=== PATIENT | male | born 1985 | race African-American/Black ===

== ENCOUNTER 2025-04-16 05:35 | Emergency (ER) | payer OTHER ==
[2025-04-16 05:48] VITALS: TEMP 97.7
--- NOTE | 2025-04-16 06:24 | ED ---
Fall HPI - General Chief Complaint: Fall Stated Complaint: Fall Time Seen by Provider: 04/16/25 05:58 Source: patient, EMS, RN notes reviewed Mode of arrival: EMS Limitations: no limitations - History of Present Illness Initial Comments: This is a 39-year-old male who presents to the emergency department for a fall. Patient is currently at [facility] for opioid abuse. He tripped over his own shoes when he was walking down the hallway, causing him to fall and land face first. Denies any LOC or blood thinner use. He does have a laceration to his right eyebrow, which they bandaged. Unsure when his last tetanus vaccine was. Denies sustaining any other injuries. He is slow to respond and not willing to engage much in conversation. States that this is because he is tired. MD Complaint: fall - Related Data Allergies Allergy/AdvReac Type Severity Reaction Status Date / Time No Known Allergies Allergy Verified 04/16/25 05:47 Review of Systems ROS Statement: Those systems with pertinent positive or pertinent negative responses have been documented in the HPI. ROS Other: All systems not noted in ROS Statement are negative. Past Medical History Additional Past Medical History / Comment(s): opioid abuse History of Any Multi-Drug Resistant Organisms: None Reported Past Surgical History: Joint Replacement Additional Past Surgical History / Comment(s): left hip replacement 2017 Past Psychological History: No Psychological Hx Reported Smoking Status: Current some day smoker Past Alcohol Use History: None Reported Past Drug Use History: Opiates General Exam Limitations: no limitations General appearance: alert, in no apparent distress Head exam: Present: other (1 cm superficial laceration above the right eyebrow) Eye exam: Present: normal appearance, PERRL, EOMI. Absent: scleral icterus, conjunctival injection, periorbital swelling Respiratory exam: Present: normal lung sounds bilaterally. Absent: respiratory distress, wheezes, rales, rhonchi, stridor Cardiovascular Exam: Present: regular rate, normal rhythm GI/Abdominal exam: Present: soft. Absent: distended, tenderness Neurological exam: Present: alert, oriented X3, CN II-XII intact Psychiatric exam: Present: normal affect, normal mood Course Vital Signs 04/16/25 04/16/25 05:36 06:39 Temperature 97.7 F Pulse Rate 59 L 58 L Respiratory 14 16 Rate Blood Pressure 129/87 118/69 O2 Sat by Pulse 99 98 Oximetry Procedures - Laceration Laceration #1 Consent Obtained: verbal consent Indication: laceration Site: face Size (cm): 1 Description: linear Depth: simple, single layer Size of Sutures: other (Dermabond) Medical Decision Making - Medical Decision Making This is a 39-year-old male who presents to the emergency department for a fall. Was pt. sent in by a medical professional or institution? @ -[facility] Did you speak to anyone other than the patient for history? @ -EMS provided the majority of the history Did you review nursing and triage notes? @ -Yes, and I agree, it is accurate with regards to the patient's symptoms. Were old charts reviewed? @ -No Differential Diagnosis? @ -Differential Diagnosis Head Injury: Contusion, hematoma, intracranial hemorrhage, skull fracture, whiplash, concussion, this is not meant to be an all-inclusive list. EKG interpreted by me (3pts min.)? @ -Not obtained X-rays interpreted by me (1pt min.)? @ -Not obtained CT interpreted by me (1pt min.)? @ -Computed tomography scan of the brain and c-spine obtained. My interpretation identifies no evidence of an acute intracranial hemorrhage, skull fracture, or cervical spine fracture. CT scan of the facial bones obtained. My interpretation identifies no acute facial fractures. U/S interpreted by me (1pt. min.)? @ -Not obtained What testing was considered but not performed? (CT, X-rays, U/S, labs)? Why? @ -None What meds were considered but not given? Why? @ -None Did you discuss the management of the patient with other professionals? @ -No Did you reconcile home meds? @ -No Was smoking cessation discussed for >3mins.? @ -I discussed smoking cessation for greater than 3 minutes. The risk of smoking were discussed with the patient including but not limited to risks of cancer, stroke, coronary artery disease and COPD. Also discussed with patient were multiple methods of quitting smoking. Lastly we discussed the financial cost of smoking. Was critical care preformed (if so, how long)? @ -No Were there social determinants of health that impacted care today? How? (Homelessness, low income, unemployed, alcoholism, drug addiction, transportation, low edu. Level, literacy, decrease access to med. care, long term, rehab)? @ -Rehab, where the event took place Was there de-escalation of care discussed even if they declined? (Discuss DNR or withdrawal of care, Hospice)? @ -No What co-morbidities impacted this encounter? (DM, HTN, Smoking, COPD, CAD, Cancer, CVA, Hep., AIDS, mental health diagnosis, sleep apnea, morbid obesity)? @ -History of drug addiction, smoking Was patient admitted / discharged? @ -Discharged. On arrival, patient had a GCS of 13-14 due to minor confusion in conversation as well as only wanting to open eyes to verbal stimuli. However, patient did advise that this was because he was very tired. Because he did not have a GCS of 15 and was not engaging much in conversation, CT scan of the brain/C-spine and CT scan of the facial bones obtained. No acute intracranial process or fractures were identified. Dermabond was used to repair the laceration and his tetanus vaccine was updated. At the time of discharge and on reevaluation, GCS was 15. He remained alert and oriented x 4 throughout his visit. Patient discharged back to [facility] in stable condition. Case discussed with ED attending Dr. Moore. Return precautions reviewed in depth, the patient is instructed to return to the emergency department with any new, worsening, or concerning symptoms. Patient verbalized understanding. Undiagnosed new problem with uncertain prognosis? @ -None Drug Therapy requiring intensive monitoring for toxicity (Heparin, Nitro, Insulin, Cardizem)? @ -None Were any procedures done? @ -Laceration repair with Dermabond Diagnosis/symptom? @ -Fall, head injury, laceration Acute, or Chronic, or Acute on Chronic? @ -Acute Uncomplicated (without systemic symptoms) or Complicated (systemic symptoms)? @ -Uncomplicated Side effects of treatment? @ -None Exacerbation, Progression, or Severe Exacerbation] @ -Not applicable Poses a threat to life or bodily function? @ -No - Radiology Data Radiology results: report reviewed, image reviewed Disposition Clinical Impression: Fall, Head injury, Laceration, Nicotine dependence Disposition: HOME SELF-CARE Instructions (If sedation given, give patient instructions): Skin Adhesive Care (ED) Additional Instructions: Return to the emergency department with any new, worsening, or concerning symptoms. Keep the area dry, do not apply topical medications, and do not rub, scratch, or pick at the wound. The adhesive will naturally fall off within 5-10 days. Follow up with your primary care provider in 1-2 days. Is patient prescribed a controlled substance at d/c from ED?: No Referrals: None,Stated [Primary Care Provider] - 1-2 days Time of Disposition: 07:36
[2025-04-16 06:41] VITALS: BP 118/69; PULSE 58; RESP 16
[2025-04-16] MEDS: TOPICAL SKIN ADHESIVE 1 EACH AMP TOPICAL ONE (06:58)
[2025-04-16] MEDS: DIPH,PERTUS(ACELL)TETVAC-LF 0.5 ML VIAL IM ONE (06:59)
[2025-04-16] MEDS: TRIMETHOBENZAMIDE 100 MG/ML 2 ML VIAL IM STA (07:20)
--- NOTE | 2025-04-16 07:26 | CT ---
EXAMINATION TYPE: CT brain cspine wo con, CT facial bones wo con DATE OF EXAM: 04/16/2025 6:23 AM COMPARISON: None. CLINICAL INDICATION: Male, 39 years old with history of Fall; pain TECHNIQUE: Brain: Multiple axial CT images of the brain were obtained without IV contrast. Cspine: Axial CT images from the skull base to the inferior aspect of T2 we obtained without intraven ous contrast. Coronal and sagittal reformatted images were also reviewed. Facial: Axial imaging of the facial structures with sagittal and coronal reformats. CT DLP: 1077 mGycm, Automated exposure control for dose reduction was used. FINDINGS: Brain: Extra-axial spaces: No abnormal extra-axial fluid collections. Ventricular system: Within normal limits Cerebral parenchyma: No acute intraparenchymal hemorrhage or mass effect. The msith-white junction is well differentiated. Cerebellum: Unremarkable. Mass effect: No evidence of midline shift. Intracranial vasculature: unremarkable Soft tissues: Subcutaneous changes edema around the right periorbital ridge. Calvarium/osseous structures: No depressed skull fracture. Remote left lamina papyracea fracture. Paranasal sinuses and mastoid air cells: Clear. Visualized orbits: Orbital contents are intact. Cervical spine: Fracture: None. Osseous structures: Unremarkable Vertebral alignment: Within normal limits. Spinal canal/Neural Foramina: No evidence of significant spinal canal narrowing. No evidence for sign ificant neural foraminal stenosis. Neck soft tissues: Prevertebral soft tissues are within normal limits. Other: The airway is patent. The lung apices are clear. Facial: There is no evidence of fracture, subluxation, dislocation. There is mild soft tissue swellin g on the right orbital region. Indentation of the left upper fascia series 2 oh 13 image 31 The orbit al contents are unremarkable.The temporal-mandibular joints appear symmetric. The visualized portion of the paranasal sinuses appear clear. IMPRESSION: 1. No acute intracranial process. 2. Changes edema around the right periorbital ridge without evidence of fracture. 3. Remote left lamina Propecia fracture. 4. No evidence of cervical spine fracture. [facility], , 04/16/2025 7:23 AM [facility], , 04/16/2025 7:24 AM
== END 2025-04-16 07:47 | disposition home or self-care (01) ==
LOC: EC 05:35
DX: S01.111A Laceration without foreign body of right eyelid and periocular area, initial encounter (principal); S09.90XA Unspecified injury of head, initial encounter; F17.200 Nicotine dependence, unspecified, uncomplicated; Z23 Encounter for immunization; W01.0XXA Fall on same level from slipping, tripping and stumbling without subsequent striking against object, initial encounter
CPT/HCPCS: 99284; 90471; 96372; 12011; 72125; 70486; 70450; 90715; J3250